=== PATIENT | female | born 1985 | race Two or more races ===

== ENCOUNTER 2023-08-28 18:06 | Emergency (ER) | payer MEDICAID, SELFPAY ==
[2023-08-28 18:45] VITALS: BP 114/71; PULSE 94; RESP 18; TEMP 36.9; O2SAT 96; BMI 30.2
--- NOTE | 2023-08-28 19:06 | ED_ITS ---
HPI - General Adult General Chief complaint: General Medical Stated complaint: ? Covid Time Seen by Provider: 08/28/23 19:42 Source: patient Mode of arrival: ambulatory Limitations: no limitations History of Present Illness HPI narrative: 38 yo female no PMH no vaccinated x 2 for COVID, dry cough, runny nose body aches loss of taste and smell since Saturday. complaint: viral symptoms Onset (ago): day(s) (Saturday) Location: head Radiation: non-radiation Severity: mild Quality: dull Relieving factors: none Exacerbating factors: none Associated symptoms: cough, loss of appetite and malaise Treatments prior to arrival: none Related Data Allergies Allergy/AdvReac Type Severity Reaction Status Date / Time No Known Allergies Allergy Verified 08/28/23 18:49 Review of Systems Review of Systems: Constitutional : no Fever, no Chills, positive fatigue, positive Malaise ENT/Mouth : positive sore throat, positive runny nose Eyes: No Discharge Cardiovascular : No Chest Pain, No SOB Respiratory : No Cough, No Sputum Gastrointestinal : No Nausea, No Vomiting, No Diarrhea Genitourinary : No Dysuria, No Urinary Frequency Musculoskeletal : positive Myalgia Skin : No rash Neuro : No Headache PMFSH Past Medical History Attestation statement: The following information was validated with the patient. Medical History No pertinent past medical history Social History (Updated 08/28/23 @ 20:10 by Nadia Mancilla DO) Patient Tobacco Use Status: Never used Tobacco Physical Exam ED Vital Signs: Vital Signs - 24 hr 08/28/23 18:45 Temperature 98.5 F Pulse Rate 94 Respiratory Rate 18 Blood Pressure 114/71 Pulse Oximetry 96 Oxygen Delivery Method Room Air BMI result Body Mass Index 30.2 Appearance: Alert. Oriented X3. No acute distress. Eyes: Pupils equal, round and reactive to light. ENT: Pharynx normal. Neck: Normal inspection. Neck supple. CVS: Normal heart rate and rhythm. Pulses normal. Respiratory: No respiratory distress. Breath sounds normal. Abdomen: Soft and nontender. Skin: Skin warm and dry. Normal skin color. Normal skin turgor. Extremities: No lower extremity edema. No calf ttp Neuro: Oriented X 3. No motor deficit. No sensory deficit. Course Course Course Narrative: This is a rapid medical exam. Defer additional HPI, ROS, PE to primary provider. 38-year-old female here with headache, body aches, loss of taste and smell since Saturday. Patient is seeking COVID screen. COVID screen ordered. Vitals stable. Medical Decision Making Medical Decision Making [facility] Narrative: 38 yo female vaccinated x 2 here with c/o viral symptoms not toxic no CP/SOB at this time will need swab - refuses paxlovid. Will send home with precautions. Looks well. VS stable. Differential Diagnosis Differential Diagnoses: The differential diagnosis associated with the presentation includes covid, flu Lab Data [facility] Lab Attestation statement: I reviewed the patient's lab results. Labs: Lab Results 08/28/23 Range/Units 19:26 COVID-19 (BHAVIK) Positive A (Negative) COVID-19 Clin Com See Note Influenza Type A (JADEN) Negative (Negative) Influenza Type B (JADEN) Negative (Negative) Influenza A & B Note See Note Independent Historian Clinical information obtained from an independent historian. History obtained from or confirmed by: Spouse Prescription Management I considered prescription management with: Antiviral Discharge Plan Discharge Clinical Impression: COVID-19 Patient Disposition: Home, Self-Care Instructions: COVID-19 (Coronavirus Disease 2019) (ED) Additional Instructions: return for chest pain, difficulty breathing, inability to eat or drink or any other concerns. wear a mask and protect others. you need to quarantine for 5 days then wear a mask while at work and around others for another 5 days (10 days total) as long as you feel better and do not have a fever for 24 hours. Regrese por dolor en el pecho, dificultad para respirar, incapacidad para comer o beber o cualquier otra inquietud. use nesha m?scara y proteja a los dem?s. debe estar en cuarentena maira 5 d?as y luego usar nesha mascarilla en el trabajo y cerca de otras personas maira otros 5 d?as (10 d?as en total), siempre y cuando se sienta mejor y no tenga fiebre maira 24 horas. Stand Alone Forms: Work/School Release Print Language: Vietnamese
[2023-08-28 19:49] LABS: COVID-19 Test Positive (Negative); IDNOW Serial# 58CA691E
[2023-08-28 19:58] LABS: IDNOW Serial# BCCEAD1C; Influenza A Negative (Negative); Influenza B2 Negative (Negative)
== END 2023-08-28 20:14 | disposition home or self-care (01) ==
PROVIDERS: Emergency Provider Emergency Medicine
DX: U07.1 COVID-19 (principal); R05.9 Cough, unspecified; Z11.59 Encounter for screening for other viral diseases
CPT/HCPCS: 87502; 87635; 99282; 99283

== ENCOUNTER 2024-06-24 18:57 | Emergency (ER) | payer MEDICAID, SELFPAY | END 2024-06-24 20:14 | disposition left against medical advice (07) | PROVIDERS: Emergency Provider Emergency Medicine | DX: R10.10 Upper abdominal pain, unspecified (principal) ==